=== PATIENT | female | born 1980 | race Caucasian/White ===

== ENCOUNTER 2017-06-27 07:34 | Inpatient (IN) | payer BC, OTHER ==
[~2017-06-27] VITALS: Ht 162.6 cm; Wt 59.0 kg
[2017-06-27] MEDS ORDERED: ONDANSETRON 4 MG/2 ML VIAL IM PRN (13:45)
[2017-06-27] MEDS ORDERED: MAG HYDROX/AL HYDROX/SIMETH 30 ML LIQUID UDC PO PRN (13:45)
[2017-06-27] MEDS ORDERED: MIRALAX 17 GM POWD.PACK PO PRN (13:45)
[2017-06-27] MEDS ORDERED: ACETAMINOPHEN 325 MG TABLET PO PRN (13:45)
[2017-06-27] MEDS ORDERED: MAGNESIUM HYDROXIDE 30 ML LIQUID UDC PO PRN (13:45)
[2017-06-27] MEDS ORDERED: BUPRENORPHINE HCL 2 MG TAB.SUBL SL PRN (13:45)
[2017-06-27] MEDS ORDERED: ONDANSETRON ODT 4 MG TAB.RAPDIS SL PRN (13:45)
[2017-06-27] MEDS ORDERED: LOPERAMIDE HCL 2 MG CAPSULE PO PRN ×2 (13:45)
[2017-06-27] MEDS ORDERED: diphenhydrAMINE 50 MG CAPSULE PO PRN (13:45)
--- NOTE | 2017-06-27 13:57 | NUR ---
INTAKE ASSESSMENT Patient is a 36 year old female admitting to [facility]. Patient is in stable condition for admission up to the unit. Vital signs are stable, patient has a steady gait, and able to answer questions appropriately. She states she is in no pain. Allergic to penicillins. Will continue to assess the patient when she enters the unit.
[2017-06-27] MEDS ORDERED: LORAZEPAM 1 MG TABLET PO PRN ×2 (14:00)
[2017-06-27] MEDS ORDERED: LORAZEPAM 2 MG/1 ML VIAL IM PRN (14:00)
--- NOTE | 2017-06-27 14:35 | NUR ---
ADMISSION NOTE VITALS:105/57 p:80 T:97.3 R:18 O2:98% HEIGHT: 5'4" WEIGHT: 130 ALLERGIES: PENICILLIN Patient is a 36 year old female admitted to [facility] on 06/27/17 at 1435. patient is under the care of Dr. werner for opiate dependence. Patient denies suicidal and homicidal ideations at this time. Patient denies being hospitalized in the past. Patient denies chest pain and SOB. patient reports using heroin IV 1 gram a day for the past year. She has not history of medical conditions, no home medications, no PCP. Upon assessment patients skin is intact, she has bruising from track morrison on her right and left forearms. COWS 4 upon admission. patient is a full code, regular diet, with allergy to penicillins. vital signs are within normal limits. no history of seizures. Breathing is even and unlabored, so2 is 98% on RA. patient ambulates with a steady gait. patient reports living alone. She has a history of anxiety and depression. she smokes approximately one pack of cigarettes a day. Dr. Werner has been notified, and has been placed under observation. All safety measures are in place per hospital policies. all needs have gera met. will continue to monitor patient. Heroin IV 1 gram daily last used 06/26/17 used for the past year
[2017-06-27 15:18] LABS: *URINE HCG, QUAL NEGATIVE (NEGATIVE)
[2017-06-27 15:20] LABS: *AMPHETAMINE, URINE POSITIVE (NEGATIVE); *BARBITURATE, URINE NEGATIVE (NEGATIVE); *CANNABINOID, URINE NEGATIVE (NEGATIVE); *COCCAINE, URINE NEGATIVE (NEGATIVE); *OPIATE, URINE POSITIVE (NEGATIVE); *PHENCYCLIDINE SCREEN,URINE NEGATIVE (NEGATIVE)
[2017-06-27 15:51] LABS: ALANINE AMINOTRANSFERASE 222 U/L (14-59); ALKALINE PHOSPHATASE 156 U/L (50-136); ASPARTATE AMINOTRANSFERASE 100 U/L (15-37); BASOPHILS % (AUTO) 0.6 % (0.0-2.0); BILIRUBIN,TOTAL 0.6 mg/dL (0.2-1.0); CARBON DIOXIDE 30 mmol/L (21-32); CHLORIDE 105 mmol/L (98-107); CREATININE 0.8 mg/dL (0.6-1.3); EOSINOPHILS # (AUTO) 0.2 K/uL (0.0-0.7); EOSINOPHILS % (AUTO) 3.4 % (0.0-7.0); ETHANOL < 3 MG/DL (0-0); GLUCOSE 90 mg/dL (74-106); HEMOGLOBIN 13.3 G/DL (12.0-16.0); LYMPHOCYTES % (AUTO) 44.7 % (20.5-51.5); MAGNESIUM 1.8 mg/dL (1.8-2.4); MEAN CORPUSCULAR HEMOGLOBIN 29.5 UUG (27.0-31.0); MEAN CORPUSCULAR HGB CONC 33 g/dL (32.0-37.0); MEAN CORPUSCULAR VOLUME 88.4 FL (81.0-99.0); MONOCYTES # (AUTO) 0.4 K/UL (0.1-1.30); MONOCYTES % (AUTO) 7.9 % (0.0-11.0); NEUTROPHILS % (AUTO) 43.4 % (38.5-71.5); PLATELET COUNT (AUTO) 182 K/UL (150-450); POTASSIUM 3.7 mmol/L (3.5-5.1); RED BLOOD CELL COUNT(AUTO) 4.53 MIL/UL (4.2-5.4); TOTAL PROTEIN, SERUM 7.9 g/dL (6.4-8.2); UREA NITROGEN, BLOOD 13 mg/dL (7-18); WHITE BLOOD COUNT (AUTO) 4.6 K/UL (4.0-11.2)
[2017-06-27] MEDS: GABAPENTIN 300 MG CAPSULE PO SCH (16:23)
[2017-06-27 18:15] VITALS: BP 109/59
--- NOTE | 2017-06-27 18:50 | NUR ---
END OF SHIFT NOTE Patient was admitted today at 1435 for heroin IV dependence. She is a 36 year female with a history of anxiety and depression , no seizure history . Blood and urine was collected. This is her first time in treatment. Patient is allergic to penicillin, full code, and regular diet. Vital have remained within normal limits last COWS 4. Patient was orientated to the unit and all needs have been met. 4 day Subutex taper was ordered to start 06/28/17. No PRNS were given during the day shift. Patient is laying in bed resting comfortably, respirations are even and unlabored. Skin is intact, patient has bruising from track morrison on her right and left forearms. All safety measures in place, all needs have been met. Will continue to monitor patient until endorsed to night nurse.
--- NOTE | 2017-06-27 19:16 | NUR ---
Start of shift note Received report from day shift nurse. Pt is a 36 yo female, A+Ox4, presenting to [facility] for Opiate/Benzo/Meth dependence. Pt has Allergies to PCN, is on Full Code status, and on Regular diet. Pt is on Fall and Seizure precautions. Pt has HX of Anxiety and depression. Pt is on 4 day Subutex taper to start tomorrow. No s/s of distress noted at this time. Respirations even and unlabored. Will continue to monitor.
[2017-06-27 20:39] VITALS: BP 85/54
[2017-06-27] MEDS ORDERED: GABAPENTIN 300 MG CAPSULE PO SCH (21:00)
[2017-06-28 00:57] VITALS: BP 110/74
[2017-06-28 04:53] VITALS: BP 104/60
--- NOTE | 2017-06-28 06:58 | NUR ---
End of shift note Pt is a 36 yo female, A+Ox4, presenting to [facility] for Opiate/Benzo/Meth dependence. Pt has Allergies to PCN, is on Full Code status, and on Regular diet. Pt is on Fall and Seizure precautions. Pt has HX of Anxiety and depression. Pt is on 4 day Subutex taper to start today. Pt slept for a total of 9 HRS. Last COWS: 2 @0400. No s/s of distress noted at this time. Respirations even and unlabored. Will endorse to day shift nurse.
--- NOTE | 2017-06-28 07:20 | NUR ---
Start of Shift Endorsement received from nightshift nurse. Pt is a 36 y/o female admitted for Heroin and Xanax dependence. Pt has been placed on a 4 day Subutex taper and PRN Ativan. Pt is tolerating the taper AEB COWS 2. Pt did not receive any PRN medications. Pt is set to began her Subutex taper today at 06/28/17. Pt reports sleeping 5 hours and feels very tired. PT reports not having a PCP. VS WNL. Full Code. PT is alert and oriented x4. Pt is in STABLE condition at this time. Remains compliant with medication and diet regimen. All needs have been met, All safety measures in place per hospital policy. Bed in lowest position, side rails up x2, call-light within reach. Will continue to monitor
[2017-06-28 08:00] VITALS: BP 116/80
[2017-06-28 08:06] LABS: HEPATITIS B SURFACE AG Negative (Negative)
[2017-06-28] MEDS: IBUPROFEN 600 MG TABLET PO PRN (08:39)
[2017-06-28] MEDS: HYDROXYZINE PAMOATE 25 MG CAPSULE PO PRN (08:39)
[2017-06-28] MEDS: MULTIVITAMINS,THERAPEUTIC TABLET PO SCH (08:40)
[2017-06-28] MEDS: DICYCLOMINE HCL 20 MG TABLET PO PRN (08:40)
[2017-06-28] MEDS: DOCUSATE SODIUM 250 MG CAPSULE PO SCH (08:40)
[2017-06-28] MEDS: GABAPENTIN 300 MG CAPSULE PO SCH ×3 (08:40→21:06)
--- NOTE | 2017-06-28 08:40 | NUR ---
PRN Medication Administered PRN Bentyl, Motrin and Vistaril for reported stomach cramps, body aches of 6/10 and Anxiety 6/10. Will re-assess.
[2017-06-28] MEDS ORDERED: TUBERCULIN,PURIF.PROT.DERIV. 5 TU/0.1 ML TEST ID ONE (09:00)
[2017-06-28] MEDS ORDERED: 4 DAY TAPER BUPRENORPHINE -SERENITY PROTOCOL SL PRN (09:00)
[2017-06-28] MEDS ORDERED: BUPRENORPHINE HCL 2 MG TAB.SUBL SL SCH (09:00)
--- NOTE | 2017-06-28 09:15 | NUR ---
Medication Re-assessment PT reports 3/10 pain at this time and 2/10 anxiety. Medications were effective.
[2017-06-28 12:00] VITALS: BP 92/60
--- NOTE | 2017-06-28 12:30 | NUR ---
PRN medications Administered PRN Ativan 1mg for CIWA of 7 Per protocol. PT reported severe anxiety and agitation.
--- NOTE | 2017-06-28 13:06 | NUR ---
Medication Re-assessment Medication has been effective AEB CIWA of 4 at this time from CIWA of 7.
[2017-06-28] MEDS: BUPRENORPHINE HCL 2 MG TAB.SUBL SL SCH ×3 (14:07→21:07)
[2017-06-28 16:00] VITALS: BP 95/64
--- NOTE | 2017-06-28 19:07 | NUR ---
End of Shift Endorsement given to nightshift nurse. Pt is a 36 y/o female admitted for Heroin and Xanax dependence. Pt has been placed on a 4 day Subutex taper and PRN Ativan. Pt is tolerating the taper and moderately withdrawing AEB COWS 6. Pt received PRN Ativan 1mg, Bentyl, Vistaril and Motrin. Pt has started her Subutex taper due to COWS score of 12. Pt has remained in her room most of the day sleeping. Encouraged pt to drink more fluids and eat her meals. Pt did not participate in groups or activities. Intake: 700ml, Void x3, BM x0. VS WNL. Full Code. PT is alert and oriented x3. Pt is in STABLE condition at this time. Remains compliant with medication and diet regimen. All needs have been met, All safety measures in place per hospital policy. Bed in lowest position, side rails up x2, call-light within reach. Will continue to monitor
[2017-06-28 20:00] VITALS: BP 97/67
--- NOTE | 2017-06-28 20:00 | NUR ---
START OF SHIFT NOTE PATIENT IN ROOM , RESTING. PATIENT REPORTS ANXIETY, N/V, SWEATING, FATIGUE, STUFFY NOSE, C/O BACK PAIN 6/10 AND MUSCLE ACHES. RECEIVED REPORT FROM DAY SHIFT. PATIENT IS A 23 YEAR OLD FEMALE ADMITTED FOR SUBSTANCE DEPENDENCE. PATIENT IS ON 5 DAY SUBUTEX TAPER. PATIENT IS FULL CODE, REGULAR DIET AND ALLERGIC TO PENICILLIN. UPON ADMISSION , PATIENT REPORTS USING HEROIN IV 1 GRAM FOR A YEAR , XANAX 2 GRAM FOR 15 YEARS ON/OFF AND METH (SMOKE) SHE HITS X2 ON/OFF . NO SEIZURE HISTORY. PATIENTS FIRST TIME IN DETOX. PATIENT WITH TRACK NIELSEN ON BILATERAL FOREARM. PATIENT WAS GIVEN PRN BENTYL, MOTRIN, VISTARIL AND ATIVAN. LAST COWS 8. ON FALL PRECAUTION. SAFETY MEASURES IN PLACE. CALL LIGHT IN REACH. WILL CONTINUE TO MONITOR.
[2017-06-28] MEDS: METHOCARBAMOL 750 MG TABLET PO PRN (21:07)
--- NOTE | 2017-06-28 21:07 | NUR ---
PRN ROBAXIN ADMINISTRATION PATIENT C/O BACK PAIN 04/22. PRN ROBAXIN GIVEN. WILL MONITOR FOR EFFECTIVENESS
--- NOTE | 2017-06-28 22:07 | NUR ---
PRN ROBAXIN RE-ASSESSMENT PATIENT STATES ROBAXIN IS HELPFUL. PAIN LEVEL IS NOW 2, TOLERABLE. WILL CONTINUE TO MONITOR
[2017-06-29] VITALS: BP 112/78
[2017-06-29 04:00] VITALS: BP 106/68
--- NOTE | 2017-06-29 07:15 | NUR ---
Start of Shift Endorsement received from nightshift nurse. Pt is a 36 y/o female admitted for Heroin and Xanax dependence. Pt has been placed on a 4 day Subutex taper and PRN Ativan. Pt is tolerating the taper AEB COWS 2 at 0400. Pt received PRN Robaxin for body aches. . Pt reports sleeping 11 hours. Pt appears to be sleeping, breathing even and unlabored, responsive to touch. . VS WNL. Full Code. PT is alert and oriented x4. Pt is in STABLE condition at this time. Remains compliant with medication and diet regimen. All needs have been met, All safety measures in place per hospital policy. Bed in lowest position, side rails up x2, call-light within reach. Will continue to monitor
--- NOTE | 2017-06-29 07:29 | NUR ---
END OF SHIFT NOTE PATIENT REPORTED ANXIETY, N/V, SWEATING, FATIGUE, STUFFY NOSE, C/O BACK PAIN 6/10 AND MUSCLE ACHES. PATIENT IS A 23 YEAR OLD FEMALE ADMITTED FOR SUBSTANCE DEPENDENCE. PATIENT IS ON 5 DAY SUBUTEX TAPER, TOLERATED WELL. PATIENT IS FULL CODE, REGULAR DIET AND ALLERGIC TO PENICILLIN. UPON ADMISSION , PATIENT REPORTS USING HEROIN IV 1 GRAM FOR A YEAR , XANAX 2 GRAM FOR 15 YEARS ON/OFF AND METH (SMOKE) SHE HITS X2 ON/OFF . NO SEIZURE HISTORY. PATIENTS FIRST TIME IN DETOX. PATIENT WITH TRACK NIELSEN ON BILATERAL FOREARM. PATIENT WAS GIVEN PRN ROBAXIN . . ON FALL PRECAUTION. SAFETY MEASURES IN PLACE. CALL LIGHT IN REACH. WILL CONTINUE TO MONITOR. SLEPT 11 HOURS. FLUID INTAKE 1,355 ML. VOIDED X 3 . NO BM. LAST COWS 2.
[2017-06-29 08:00] VITALS: BP 106/60
[2017-06-29] MEDS ORDERED: BUPRENORPHINE HCL 2 MG TAB.SUBL SL SCH ×2 (09:00→15:00)
[2017-06-29] MEDS: IBUPROFEN 600 MG TABLET PO PRN (09:33)
[2017-06-29] MEDS: METHOCARBAMOL 750 MG TABLET PO PRN ×2 (09:33→20:57)
[2017-06-29] MEDS: BUPRENORPHINE HCL 2 MG TAB.SUBL SL SCH ×3 (09:33→20:57)
[2017-06-29] MEDS: MULTIVITAMINS,THERAPEUTIC TABLET PO SCH (09:33)
[2017-06-29] MEDS: GABAPENTIN 300 MG CAPSULE PO SCH ×3 (09:33→20:57)
[2017-06-29] MEDS: DOCUSATE SODIUM 250 MG CAPSULE PO SCH (09:33)
[2017-06-29 12:00] VITALS: BP 155/81
[2017-06-29] MEDS ORDERED: KETOROLAC TROMETHAMINE 30 MG INJ IM PRN (13:45)
[2017-06-29] MEDS: LIDOCAINE 5% PATCH TD SCH (14:54)
[2017-06-29 16:00] VITALS: BP 145/87
[2017-06-29] MEDS: HYDROXYZINE PAMOATE 25 MG CAPSULE PO PRN (18:55)
--- NOTE | 2017-06-29 19:10 | NUR ---
End of Shift Endorsement given to nightshift nurse. Pt is a 36 y/o female admitted for Heroin and Xanax dependence. Pt has been placed on a 4 day Subutex taper. Pt is tolerating the taper and moderately withdrawing AEB COWS 7. Pt received PRN Robaxin, Vistaril and Motrin. Pt has participated in groups and activities. Encouraged pt to drink more fluids and eat her meals. Educated pt on deep breathing techniques to help relieve mild to moderate anxiety. Educated pt on S/E of withdrawal and diet regimen. Intake: 1388ml, Void x3, BM x1. VS WNL. Full Code. PT is alert and oriented x4. Pt is in STABLE condition at this time. Remains compliant with medication and diet regimen. All needs have been met, All safety measures in place per hospital policy. Bed in lowest position, side rails up x2, call-light within reach. Will continue to monitor
[2017-06-29 20:00] VITALS: BP 99/61
--- NOTE | 2017-06-29 20:00 | NUR ---
START OF SHIFT NOTE RECEIVED REPORT FROM DAY SHIFT NURSE. PATIENT IS A 36 YEAR OLD FEMALE ADMITTED FOR BENZO/BENZO AND METH DEPENDENCE. PATIENT CONTINUE ON 5 DAY ATIVAN TAPER, TOLERATED WELL. NO ADVERSE REACTION. NO SEIZURE HISTORY. ALLERGIC TO PENICILLIN. PATIENT WAS UP AND ABOUT, ATTENDED GROUPS. PATIENT WAS GIVEN PRN VISTARIL . LAST COWS 7. ON FALL PRECAUTION. SAFETY MEASURES IN PLACE. CALL LIGHT IN REACH. WILL CONTINUE TO MONITOR.
--- NOTE | 2017-06-29 20:57 | NUR ---
PRN ROBAXIN ADMINISTRATION PATIENT C/O BACK PAIN 05/22. PRN ROBAXIN GIVEN. WILL MONITOR FOR EFFECTIVENESS
--- NOTE | 2017-06-29 21:57 | NUR ---
PRN ROBAXIN ADMINISTRATION PATIENT STATES ROBAXIN IS HELPFUL. NO PAIN AT THIS TIME. WILL CONTINUE TO MONITOR.
[2017-06-30] VITALS: BP 96/65
--- NOTE | 2017-06-30 04:00 | NUR ---
COWS/VS PATIENT ASLEEP AT THIS TIME. COWS UNABLE TO ASSESS. RESPIRATION EVEN AND UNLABORED. RR 14. SAFETY MEASURES IN PLACE. CALL LIGHT IN REACH. WILL CONTINUE TO MONITOR
--- NOTE | 2017-06-30 07:31 | NUR ---
END OF SHIFT NOTE PATIENT IS A 36 YEAR OLD FEMALE ADMITTED FOR BENZO/BENZO AND METH DEPENDENCE. PATIENT CONTINUE ON 5 DAY ATIVAN TAPER, TOLERATED WELL. NO ADVERSE REACTION. NO SEIZURE HISTORY. ALLERGIC TO PENICILLIN. PATIENT WAS UP AND ABOUT, ATTENDED GROUPS. PATIENT WAS GIVEN PRN ROBAXIN . PATIENT COMPLIANT WITH MEDICATION AND TREATMENT PLAN. ON FALL PRECAUTION. SAFETY MEASURES IN PLACE. CALL LIGHT IN REACH. WILL CONTINUE TO MONITOR. SLEPT 9 HOURS. FLUID INTAKE 300 ML. VOIDED X 1. NO BM. LAST COWS 2 .
--- NOTE | 2017-06-30 07:45 | NUR ---
START OF SHIFT Rcvd endorsement from ongoing nurse, client is in room, she sounds asleep, RR 16 even, non-labored. Client is a 36 yo female admitted for withdrawal from heroin. She is on 5 day Subutex taper (day 3), tolerating well, last COWS 2 @ 2400. She reports PMH of Anxiety, depression, Hep C positive (06/27/17). She reports allergies to PCN, full code, regular diet. PRN Robaxin 750mg for muscle pain, noted effective. Client slept 9 hrs. Client denied a history of withdrawal-induced seizure. She is on seizure precautions. Call light within reach. Side rails up x2/padded, bed locked and in low position.
[2017-06-30 08:10] VITALS: BP 95/60
[2017-06-30 08:17] LABS: BILIRUBIN,DIRECT 0.1 mg/dL (0.0-0.2); BILIRUBIN,TOTAL 0.3 mg/dL (0.2-1.0); TOTAL PROTEIN, SERUM 6.7 g/dL (6.4-8.2)
[2017-06-30] MEDS ORDERED: BUPRENORPHINE HCL 2 MG TAB.SUBL SL SCH ×2 (09:00)
--- NOTE | 2017-06-30 09:00 | NUR ---
Zero induration noted at TB site on L forearm.
[2017-06-30] MEDS: GABAPENTIN 300 MG CAPSULE PO SCH ×3 (09:34→20:54)
[2017-06-30] MEDS: DOCUSATE SODIUM 250 MG CAPSULE PO SCH (09:34)
[2017-06-30] MEDS: LIDOCAINE 5% PATCH TD SCH (09:35)
[2017-06-30] MEDS: MULTIVITAMINS,THERAPEUTIC TABLET PO SCH (09:35)
--- NOTE | 2017-06-30 11:14 | NUR ---
Therapist prompted client about group times. Client stated she would attend all groups today.
[2017-06-30 12:00] VITALS: BP 112/70
[2017-06-30] MEDS: HYDROXYZINE PAMOATE 25 MG CAPSULE PO PRN ×2 (14:03→20:58)
[2017-06-30] MEDS: CLONIDINE HCL 0.1 MG TABLET PO PRN (14:05)
[2017-06-30] MEDS: BUPRENORPHINE HCL 2 MG TAB.SUBL SL SCH ×2 (14:05→20:53)
--- NOTE | 2017-06-30 14:05 | NUR ---
PRN Clonidine 0.1mg, Vistaril 50mg Client reports irritability, chills and anxiety above medications administered PO, will continue to monitor. Client states "I just want to go home, I miss my son and my dogs." brand advocate with client at this time.
--- NOTE | 2017-06-30 14:06 | NUR ---
Nursing notes C. N. notified of client's desire to AMA.
--- NOTE | 2017-06-30 15:05 | NUR ---
Reassessment PRN Clonidine 0.1mg, Vistaril 50mg Client appears less irritable, she is in bed watching TV, she reports felling better. above meds effective.
[2017-06-30 16:55] VITALS: BP 99/60
[2017-06-30] MEDS ORDERED: LIDO30AD10 TD (18:11)
[2017-06-30] MEDS ORDERED: HYDR-3895 PO (18:11)
[2017-06-30] MEDS ORDERED: CLON0.1T14 PO (18:11)
[2017-06-30] MEDS ORDERED: METH-406 PO (18:11)
[2017-06-30] MEDS ORDERED: DIPH50CA37 PO (18:11)
[2017-06-30] MEDS ORDERED: IBUP-1955 PO (18:11)
[2017-06-30] MEDS ORDERED: GABA-534 PO (18:11)
[2017-06-30] MEDS ORDERED: DICY20TA28 PO (18:11)
--- NOTE | 2017-06-30 19:24 | NUR ---
END OF SHIFT Client is a 36 yo female admitted for withdrawal from heroin. She continues on 5 day Subutex taper (day 3), tolerating well, last COWS 6 @ 1600. Vistaril 50mg, Clonidine 0.1mg for amxiety, irritability and coled PO administered, noted effective. She reports allergies to PCN, full code, regular. Client was compliant with group therapy. Adequate PO intake, client void x 4, stool x 1. Safety measures in place, call light within reach, side rails up x2, bed locked and in low position. Endorsed to incoming nurse
[2017-06-30 20:00] VITALS: BP 113/60
--- NOTE | 2017-06-30 20:00 | NUR ---
START OF SHIFT NOTE RECEIVED REPORT FROM DAY SHIFT NURSE. PATIENT IS A 36 YEAR OLD FEMALE ADMITTED FOR OPIATE/BENZO AND METH DEPENDENCE. PATIENT IS ON 3RD DAY OF HER SUBUTEX TAPER. PATIENT IS ALLERGIC TO PENICILLIN. NO SEIZURE HISTORY. PATIENT IS HEP + BASED ON LAB 06/27/17. PATIENT WAS EMOTIONAL DURING THE DAY. PRN CLONIDINE AND VISTARIL. LAST COWS 5. ON FALL PRECAUTION. SAFETY MEASURES IN PLACE. CALL LIGHT IN REACH. WILL CONTINUE TO MONITOR.
[2017-06-30] MEDS: METHOCARBAMOL 750 MG TABLET PO PRN (20:54)
--- NOTE | 2017-06-30 20:54 | NUR ---
PRN BENADRYL AND ROBAXIN ADMINISTRATION PATIENT REQUESTS FOR SLEEP AID AND C/O BACK PAIN 04/22. PRN ROBAXIN AND BENADRYL GIVEN. WILL MONITOR FOR EFFECTIVENESS
--- NOTE | 2017-06-30 21:54 | NUR ---
GRUPO BACK AND MOHAN RE-ASSESSMENT PATIENT IN BED ASLEEP. NO FACIAL GRIMACING NOTED. RESPIRATION EVEN AND UNLABORED. SAFETY MEASURES IN PLACE. CALL LIGHT IN REACH. WILL CONTINUE TO MONITOR.
[2017-07-01] VITALS: BP 91/60
[2017-07-01 04:00] VITALS: BP 90/60
--- NOTE | 2017-07-01 07:05 | NUR ---
END OF SHIFT NOTE MONITORED PATIENT THROUGHOUT SHIFT. CONTINUE ON SUBUTEX TAPER, TOLERATED WELL AND NO ADVERSE REACTION. PATIENT EMOTIONAL BEGINNING OF SHIFT, POSITIVE ENCOURAGEMENT GIVEN AND REDIRECTION PROVIDED BUT COMPLIANT WITH MEDICATIONS AND TREATMENT PLAN. PATIENT ATTENDED GROUPS. PATIENT IS HEP + BASED ON LAB 06/27/17. PATIENT WAS GIVEN PRN ROBAXIN AND BENADRYL AT 2053. ON FALL PRECAUTION. SAFETY MEASURES IN PLACE. CALL LIGHT IN REACH. WILL CONTINUE TO MONITOR. SLEPT 8 HOURS. FLUID INTAKE 500 ML. VOIDED X 1. NO BM. LAST COWS 1 .
--- NOTE | 2017-07-01 08:00 | NUR ---
START OF SHIFT Rcvd endorsement from ongoing nurse, client is in room, a/o x 4, she presents with anxious mood, flat affect, she stated, "I did not sleep at all last night, my back hurt really bad." she reports restless legs, chills, abdominal spasms and anxiety. Client is a 36 yo female admitted for withdrawal from heroin. She is on last of 3 day Subutex taper, tolerating well, last COWS 1 @ 2400. She reports PMH of Anxiety, depression, Hep C positive (06/27/17). She reports allergies to PCN, full code, regular diet. PRN Robaxin 750mg for muscle pain and Benadryl for inability to sleep, she slept 8 hrs. Client denied a history of withdrawal-induced seizure. She is on seizure precautions. Call light within reach. Side rails up x2/padded, bed locked and in low position.
[2017-07-01 08:50] VITALS: BP 117/70
[2017-07-01] MEDS: METHOCARBAMOL 750 MG TABLET PO PRN (08:59)
[2017-07-01] MEDS: GABAPENTIN 300 MG CAPSULE PO SCH ×3 (08:59→21:16)
[2017-07-01] MEDS: DOCUSATE SODIUM 250 MG CAPSULE PO SCH (08:59)
[2017-07-01] MEDS: HYDROXYZINE PAMOATE 25 MG CAPSULE PO PRN ×2 (08:59→16:17)
[2017-07-01] MEDS: CLONIDINE HCL 0.1 MG TABLET PO PRN ×2 (08:59→16:17)
[2017-07-01] MEDS: MULTIVITAMINS,THERAPEUTIC TABLET PO SCH (08:59)
--- NOTE | 2017-07-01 08:59 | NUR ---
PRN Clonidine 0.1mg, Robaxin 750mg, Vistaril 50mg for irritability, chills, generalized muscle pain 6/10 and anxiety. Call light within reach.
[2017-07-01] MEDS ORDERED: BUPRENORPHINE HCL 2 MG TAB.SUBL SL SCH ×2 (09:00)
[2017-07-01] MEDS: LIDOCAINE 5% PATCH TD SCH (09:00)
--- NOTE | 2017-07-01 09:59 | NUR ---
Reassessment PRN Clonidine 0.1mg, Robaxin 750mg, Vistaril 50mg client appears less irritable, she reports relief from muscle pain 2/10, but tolerable and less anxious.
[2017-07-01 12:55] VITALS: BP 105/61
[2017-07-01] MEDS: BACLOFEN 10 MG TABLET PO SCH ×2 (14:25→21:16)
[2017-07-01 16:00] VITALS: BP 120/67
[2017-07-01] MEDS: DICYCLOMINE HCL 20 MG TABLET PO PRN (16:17)
--- NOTE | 2017-07-01 16:17 | NUR ---
PRN Clonidine 0.1mg, Bentyl 20mg, Vistaril 50mg for irritability, chills, abdominal spasms and anxiety. Call light within reach.
[2017-07-01 16:56] LABS: *AMPHETAMINE, URINE POSITIVE (NEGATIVE); *BARBITURATE, URINE NEGATIVE (NEGATIVE); *CANNABINOID, URINE NEGATIVE (NEGATIVE); *COCCAINE, URINE NEGATIVE (NEGATIVE); *OPIATE, URINE POSITIVE (NEGATIVE); *PHENCYCLIDINE SCREEN,URINE NEGATIVE (NEGATIVE)
--- NOTE | 2017-07-01 17:17 | NUR ---
Reassessment PRN Clonidine 0.1mg, Bentyl 20mg, Vistaril 50mg client appears less irritable, she reports relief from abdominal spasm, but tolerable and less anxious.
--- NOTE | 2017-07-01 19:55 | NUR ---
START OF SHIFT Received report from day shift nurse. Pt is lying in bed resting. She is a 36 yo female admitted to [facility] on 06/27 for opiate dependence with a h/o xanax and meth use. Pt is A&O x4 and ambulatory. NKA, full code status, and on a regular diet. She has a PMH of hepatits C, anxiety, and depression. On admission she reported using heroin 1 gram per day, xanax 2 grams PRN, and methamphetamine "hit x2 off and on". 3 day subutex taper complete and pt is scheduled for discharge tomorrow. She reports mild anxiety and has tremors that can be felt. Minimal other s/s of withdrawal. Fall and seizure precautions ordered. Bed is down with call light in reach.
[2017-07-01 20:00] VITALS: BP 89/59
[2017-07-01] MEDS ORDERED: PRAZOSIN HCL 1 MG CAPSULE PO SCH (21:00)
[2017-07-02] VITALS: BP 85/54
--- NOTE | 2017-07-02 | NUR ---
0000 COWS deferred COWS ordered Q4HWA. Pt is lying in bed resting with eyes closed. Respirations even and unlabored. Vital signs obtained. Safety measures in place.
[2017-07-02 04:00] VITALS: BP 91/60
--- NOTE | 2017-07-02 04:00 | NUR ---
0400 COWS deferred COWS ordered Q4HWA. Pt is lying in bed resting with eyes closed. Respirations even and unlabored. Vital signs obtained. Safety measures in place.
--- NOTE | 2017-07-02 07:23 | NUR ---
START OF SHIFT Report provided to day shift nurse. Pt is lying in bed resting. She is a 36 yo female admitted to [facility] on 06/27 for opiate dependence with a h/o xanax and meth use. Pt is A&O x4 and ambulatory. NKA, full code status, and on a regular diet. She has a PMH of hepatits C, anxiety, and depression. Upon admission she admitted to using heroin 1 gram per day, xanax 2 grams PRN, and methamphetamine "hit x2 off and on". She completed a 3 day subutex taper and pt is scheduled for discharge today. No PRN medications administered. Last CIWA 2. She drank 1377mL and slept for 9 hours. Fall and seizure precautions ordered. Bed is down with call light in reach.
--- NOTE | 2017-07-02 07:26 | NUR ---
START OF SHIFT NOTE: Received report from cook night nurse. Pt is a 36 y/o female admitted for Heroin and Xanax dependence. To be discharged this AM. Pt is alert and oriented X4. Color good, skin warm and dry. Respirations even and unlabored. Resting in bed. Safety precautions observed. Call light within reach.
[2017-07-02 08:00] VITALS: BP 100/63
--- NOTE | 2017-07-02 08:30 | NUR ---
Discharge papers signed. No home medications. VSS
[2017-07-02] MEDS: MULTIVITAMINS,THERAPEUTIC TABLET PO SCH (08:47)
[2017-07-02] MEDS: GABAPENTIN 300 MG CAPSULE PO SCH (08:47)
[2017-07-02] MEDS: BACLOFEN 10 MG TABLET PO SCH (08:47)
[2017-07-02] MEDS: LIDOCAINE 5% PATCH TD SCH (08:47)
[2017-07-02] MEDS ORDERED: BUPRENORPHINE HCL 2 MG TAB.SUBL SL SCH (09:00)
--- NOTE | 2017-07-02 09:15 | NUR ---
Pt discharged in stable condition with all valuables and belongings. No home medications. Denies HI/SI. To [employer] [facility] [employer] private car.
== END 2017-07-02 09:15 | disposition other institution (70) | DRG 895 ==
LOC: SRC 13:22
PROVIDERS: ADMIT Internal Medicine; ATTEND Internal Medicine
PROC: HZ2ZZZZ Detoxification Services for Substance Abuse Treatment (ICD-10-PCS; principal; 2017-06-27)
PROC: HZ41ZZZ Group Counseling for Substance Abuse Treatment, Behavioral (ICD-10-PCS; 2017-06-29)
PROC: HZ31ZZZ Individual Counseling for Substance Abuse Treatment, Behavioral (ICD-10-PCS; 2017-06-30)
DX: F11.23 Opioid dependence with withdrawal (principal); F32.9 Major depressive disorder, single episode, unspecified; F15.10 Other stimulant abuse, uncomplicated; F41.9 Anxiety disorder, unspecified; F17.210 Nicotine dependence, cigarettes, uncomplicated; G47.00 Insomnia, unspecified; B19.20 Unspecified viral hepatitis C without hepatic coma
CPT/HCPCS: 36415; 70030-TC; 80307; 80324; 80346; 80361; 83735; 84703; 85025; 86580; 86592; 86705; 86803; 87340; 87806; A4663; G0480